=== PATIENT | female | born 1995 ===

== ENCOUNTER 2017-05-08 13:48 | Emergency (ER) | payer OTHER ==
[2017-05-08 14:00] VITALS: BP 134/79; PULSE 84; RESP 16; TEMP 98; O2SAT 100
--- NOTE | 2017-05-08 14:47 | ED PDOC ---
HPI: Female Pain Time Seen by Provider: 05/08/17 14:03 Chief Complaint (Nursing): Female Genitourinary Chief Complaint (Provider): Possible foreign body History Per: Patient History/Exam Limitations: no limitations Onset/Duration Of Symptoms: Hrs Current Symptoms Are (Timing): Still Present Associated Symptoms: denies: Fever Additional History Per: Patient Additional Complaint(s): 21yo female, with history of anxiety and depression, presents to ED with concerns regarding a foreign body in her vagina. Patient states she is currently on her menstrual cycle and is unsure if she took out her tampon last night. She states she had sexual intercourse last night and this morning. She denies any associated abdominal pain, vaginal bleeding or discharge, foul odor, or fevers. Of note, patient states she currently has an IUD in place and denies any known history of STD's. She offers no other medical complaints. PMD: Dr. Velasquez Abnormal Vaginal Bleeding: No Last Menstral Period: Currently on her menstrual period Past Medical History Reviewed: Historical Data, Nursing Documentation, Vital Signs Vital Signs: Last Vital Signs Temp 98.0 F 05/08/17 13:57 Pulse 84 05/08/17 13:57 Resp 16 05/08/17 13:57 BP 134/79 05/08/17 13:57 Pulse Ox 100 05/08/17 13:57 - Medical History PMH: Anxiety, Depression - Surgical History Surgical History: No Surg Hx - Family History Family History: States: No Known Family Hx, Unknown Family Hx - Social History Current smoker - smoking cessation education provided: No Ex-Smoker (has not smoked in the last 12 months): No Alcohol: Social - Home Medications Home Medications: Ambulatory Orders Medication Instructions Recorded No Known Home Med 01/26/16 - Allergies Allergies/Adverse Reactions: Allergies Allergy/AdvReac Type Severity Reaction Status Date / Time No Known Allergies Allergy Verified 05/08/17 13:57 Review of Systems ROS Statement: Except As Marked, All Systems Reviewed And Found Negative Constitutional: Negative for: Fever Gastrointestinal: Negative for: Abdominal Pain Genitourinary Female: Positive for: Other (no vaginal pain; concerned about tampon in vagina). Negative for: Vaginal Discharge, Vaginal Bleeding Physical Exam - Reviewed Nursing Documentation Reviewed: Yes Vital Signs Reviewed: Yes - Physical Exam Appears: Positive for: Well, Non-toxic, No Acute Distress Head Exam: Positive for: ATRAUMATIC, NORMOCEPHALIC Skin: Positive for: Normal Color, Warm, Dry Eye Exam: Positive for: EOMI, PERRL Neck: Positive for: Painless ROM, Supple Cardiovascular/Chest: Positive for: Regular Rate, Rhythm. Negative for: Murmur , Bradycardia, Tachycardia Respiratory: Positive for: Normal Breath Sounds. Negative for: Decreased Breath Sounds, Accessory Muscle Use, Wheezing, Respiratory Distress Gastrointestinal/Abdominal: Positive for: Bowel Sounds (active x4), Soft. Negative for: Tenderness, Mass, Distended, Guarding, Rebound Pelvic Exam: Positive for: No Cerv. Motion Tender, No Masses, Blood (in vaginal vault), Other (chaperoned by ER Nurse Carmella; IUD in place; no foreign body noted at this time). Negative for: Discharge, Lesions, Mass, Tender Adnexa Neurologic/Psych: Positive for: Alert, Oriented (x3), Mood/Affect (appropriate) , Gait (steady in ED) - ECG O2 Sat by Pulse Oximetry: 100 (RA) Pulse Ox Interpretation: Normal Medical Decision Making Medical Decision Making: Impression: Concern for foreign body in vagina Plan: -- Pelvic exam, performed with RN Carmella as camera storage clerk Progress: -- Patient with normal pelvic exam, no foreign body noted. Discussed findings with patient, and informed her to follow up with her [facility] [employer] [facility]. Patient is stable for discharge home. Based on history, exam and diagnostic results, plan will be for outpatient follow up. Patient instructed to follow-up with pmd /absorption plant operator helper / the clinic in 1-2 days without fail. Return to the emergency room at any time for any new or worsening symptoms. Patient states she fully agrees with and understands discharge instructions. States that she agrees with the plan and disposition. Verbalized and repeated discharge instructions and plan. I have given the patient opportunity to ask any additional questions. Scribe Attestation: Documented by Juju Hughes, acting as a scribe for LASHONDA Keith. Provider Scribe Attestation: All medical record entries made by the Scribe were at my direction and personally dictated by me. I have reviewed the chart and agree that the record accurately reflects my personal performance of the history, physical exam, medical decision making, and the department course for this patient. I have also personally directed, reviewed, and agree with the discharge instructions and disposition. Disposition - Clinical Impression Clinical Impression: Vaginal foreign body, Sensation of foreign body - Disposition Referrals: [facility] [Provider Group] [facility] [Outside] Disposition: Routine/Home Disposition Time: 15:13 Condition: STABLE Additional Instructions: FOLLOW UP WITH [facility] [employer] [facility] SPECIALIST WITHOUT FAIL. RETURN TO ED WITH ANY NEW OR WORSENING SYMPTOMS INCLUDING BUT NOT LIMITED TO VAGINAL DISCOMFORT, INCREASED BLEEDING, VAGINAL ODOR OR DISCHARGE, ABDOMINAL PAIN, AND/OR FEVER. Forms: DDN (Hungarian) Print Language: LAO - PA / FASHION MERCHANDISER / Resident Statement MD/DO has reviewed & agrees with the documentation as recorded.
== END 2017-05-08 14:55 | disposition home or self-care (01) ==
LOC: H.ER 13:48
DX: T19.2XXA Foreign body in vulva and vagina, initial encounter (principal); X58.XXXA Exposure to other specified factors, initial encounter